=== PATIENT | male | born 1985 | race Caucasian/White ===

== ENCOUNTER 2018-04-15 05:41 | Day surgery (SDC) | payer OTHER ==
[~2018-04-15 05:41] MED LIST: ACETAMINOPHEN 500 MG TAB PO ONE; GABAPENTIN 300 MG CAP PO ONE; ceFAZolin 2 GM/DEXTROSE 100 ML IV ONE
[2018-04-15] MEDS ORDERED: LR 1,000 ML IV ONE (05:52)
[2018-04-15] MEDS ORDERED: CHLORHEXIDINE GLUC HIBICLENS 118 ML BTL TP ONE (06:49)
[2018-04-15] MEDS ORDERED: THROMBIN (BOVINE) 5,000 UNIT VIAL TP ONE (06:49)
[2018-04-15] MEDS ORDERED: BUPIVACAINE 0.25% 30 ML SDV ONE (06:49)
[2018-04-15] MEDS ORDERED: EPINEPHrine 1 MG/ML INJ ONE (06:50)
[2018-04-15] MEDS ORDERED: BACITRACIN 50,000 UNITS/10 ML SYR IRR ONE (06:50)
[2018-04-15] MEDS ORDERED: MIDAZOLAM 2 MG/2 ML VIAL IVP ONE (07:04)
--- NOTE | 2018-04-15 07:05 | PDHPUP ---
History & Physical Update H&P update statement: This history and physical update is based on an assessment of the patient which was completed after admission or registration (within 24 hours), but prior to the surgery/procedure. H&P update: H&P reviewed & patient examined, no change in patient's condition since H&P completed
--- NOTE | 2018-04-15 07:06 | PDANEPAE ---
ANE History of Present Illness lumbar microdisc ANE Past Medical History - Cardiovascular History Hx Hypertension: No Hx Arrhythmias: No Hx Chest Pain: No Hx Coronary Artery / Peripheral Vascular Disease: No Hx CHF / Valvular Disease: No Hx Palpitations: No - Pulmonary History Hx COPD: No Hx Asthma/Reactive Airway Disease: No Hx Recent Upper Respiratory Infection: No Hx Oxygen in Use at Home: No Hx Sleep Apnea: No ANE Review of Systems Review of systems is: negative Review of Systems: - Exercise capacity Exercise capacity: >=4 METS ANE Patient History - Allergies Allergies/Adverse Reactions: No Known Allergies Allergy (Unverified 04/12/18 15:42) - Home Medications Home medications: home medication list seen and reviewed Home Medications: Gabapentin 600 mg PO TID 04/15/18 [Last Taken 04/14/18] Oxycodone-Acetaminophen 10-325 04/15/18 [Last Taken 04/14/18] - NPO status NPO Since - Liquids (Date): 04/14/18 NPO Since - Liquids (Time): 21:00 NPO Since - Solids (Date): 04/14/18 NPO Since - Solids (Time): 18:00 - Anes Hx Anes Hx: no prior problems ANE Labs/Vital Signs - Vital Signs Blood Pressure: 103/62 Heart Rate: 53 Respiratory Rate: 16 O2 Sat (%): 97 Height: 185.42 cm Weight: 74.843 kg ANE Physical Exam - Airway Neck exam: FROM Mallampati Score: Class 2 Mouth exam: normal dental/mouth exam - Pulmonary Pulmonary: no respiratory distress - Cardiovascular Cardiovascular: regular rate and rhythym - ASA Status ASA Status: II ANE Anesthesia Plan Anesthesia Plan: general endotracheal anesthesia
[2018-04-15] MEDS ORDERED: PROPOFOL/EMULSION 500 MG/50 ML BOTTLE IV ONE (07:10)
[2018-04-15] MEDS ORDERED: fentaNYL 250 MCG/5 ML INJ ONE (07:10)
[2018-04-15] MEDS ORDERED: DEXAMETHASONE 4 MG/ML VIAL ONE (07:15)
[2018-04-15] MEDS ORDERED: KETOROLAC 30 MG/1 ML SDV ONE ×3 (07:15→13:50)
[2018-04-15] MEDS ORDERED: ROCURONIUM 50 MG/5 ML VIAL ONE ×2 (07:15→08:42)
[2018-04-15] MEDS ORDERED: ONDANSETRON 4 MG/2 ML VIAL ONE (07:15)
[2018-04-15] MEDS ORDERED: LIDOCAINE 2% 5 ML SDV ONE (07:16)
[2018-04-15] MEDS ORDERED: DEPO METHYLPREDNISOLONE 40 MG/ML SDV ONE (08:15)
--- NOTE | 2018-04-15 08:43 | POSTANESTH ---
Post Anesthetic Evaluation Cardiovascular Status: Normal, Stable Respiratory Status: Normal, Stable Level of Consciousness/Mental Status: Can Participate in Eval, Mildly Sleepy, Arousable Pain Control: Adequate, Prn Tx Ordered Nausea/Vomiting Control: Adequate, Prn Tx Ordered Complications Possibly Related to Anesthesia: None Noted
[2018-04-15] MEDS ORDERED: ALBUTEROL 3 ML DEYVIAL IH PRN (09:09)
[2018-04-15] MEDS ORDERED: ACETAMINOPHEN 500 MG TAB PO PRN (09:09)
[2018-04-15] MEDS ORDERED: oxyCODONE IR 5 MG TAB PO PRN (09:09)
[2018-04-15] MEDS ORDERED: HYDROmorphONE/DILAUDID 1 MG/ML INJ IVP PRN (09:09)
[2018-04-15] MEDS ORDERED: HYDROCODONE/APAP 5/325 TAB PO PRN (09:09)
[2018-04-15] MEDS ORDERED: LR 500 ML IV PRN (09:09)
[2018-04-15] MEDS ORDERED: ONDANSETRON 4 MG/2 ML VIAL IVP PRN (09:09)
[2018-04-15] MEDS ORDERED: NALOXONE HCL 0.4 MG/ML INJ IVP PRN (09:09)
[2018-04-15] MEDS ORDERED: PROMETHAZINE HCL 25 MG/ML INJ IVP PRN (09:09)
[2018-04-15] MEDS ORDERED: SUGAMMADEX SODIUM 200 MG/2 ML VIAL IVP ONE (09:10)
--- NOTE | 2018-04-15 10:02 | POSTOPPROG ---
Post Op Note Date of Operation: 04/15/18 Surgeon: Julio C Forrester Aeronautical Engineering Technologist: Alexandre Mars NP Anesthesia: GET(General Endotracheal) Pre-op Diagnosis: L5-S1 HNP Procedure: Right L5-S1 JAMI Inf/Abcess present in the surg proc area at time of surgery?: No Depth: Deep Incisional (Fascial) EBL: Minimal Total fluids administered: see anesthesia Complications: none Date of Surgery: 04/15/18 Post Op Day: 0 Assessment/Plan: Assessment: 33 yr old M s/p Right L5-S1 JAMI Plan: -Discharge home when criteria met -Call neurosurgery with any questions/concerns Subjective: Waking up in pacu Objective: Waking up in pacu Following commands 5/5 BLE aside from right TA and EHL 5- Sensation intact to light touch BLE Dressing CDI Appropriate Neuro Check Frequency Ordered: Yes
[2018-04-15] MEDS ORDERED: fentaNYL 100 MCG/2 ML INJ ONE (10:07)
[2018-04-15] MEDS: fentaNYL 100 MCG/2 ML INJ IVP PRN ×2 (10:10→10:21)
[2018-04-15] MEDS ORDERED: DIAZEPAM 5 MG/ML 1 ML SYR ONE (10:14)
[2018-04-15] MEDS: DIAZEPAM 5 MG/ML 1 ML SYR IVP PRN ×2 (10:16→11:08)
--- NOTE | 2018-04-15 10:25 | GOP ---
[f rep st] OPERATIVE REPORT DATE OF OPERATION: 04/15/2018 SURGEON: Kelby Forrester MD BOX NAILER: Soo Mars NP. PREOPERATIVE DIAGNOSIS: Herniated nucleus pulposus, right L5-S1, right lumbosacral radiculopathy. POSTOPERATIVE DIAGNOSIS: Herniated nucleus pulposus, right L5-S1, right lumbosacral radiculopathy. PROCEDURE PERFORMED: Right L5-S1 hemilaminotomy, medial facetectomy with a right L5-S1 microdiskecto my (03/30) microscope. FINDINGS: ESTIMATED BLOOD LOSS: 10 cc. INDICATIONS: Mr. Vargas is a young gentleman who for the last 2 months, has had terrible right lumbo sacral radiculopathy that really has gotten dramatically worse recently. When he saw me last week, vidhi muro did have weakness in the right foot, as well as terrible radiating pain down the right leg and coul d barely walk. He was in clear distress from this and we made efforts to put him on the surgery sche dule even last Sunday. His symptoms were more severe even than MRI suggested and because it had been 2 months since the prior MRI, we got a repeat MRI urgently last week and it was the same as the 1 in January. Did have a right lateral disk prolapse at L5-S1. It was still in the canal and directly under neath the medial portion of the facet joint, but he had components of both an L5 and even an S1 radic ulopathy. It is unclear to me why he had such profound weakness in the right foot, although part of his exam may have been limited by pain. We made an effort to get his surgery on last Sunday, but he had some difficulty with insurance and once this was approved, we put him on at my next available OR time which was Sunday morning. He did have some emergency room visits and was told that he could get surgery over the weekend on an emergent basis with my partners, but he was able to last through the weekend and wait for surgery with me this morning. The risk of recurrent disk herniation, nerve inju ry, spinal fluid leak was discussed. It was our intention to do this as an outpatient and I expected him to be able to go home the same day. He did want to proceed despite the risks. DESCRIPTION OF PROCEDURE: Patient was taken to the operating room, placed in the supine position. G eneral anesthesia was begun. He was flipped prone on the Evan frame. Care was taken to pad all po ints of contact. His back was sterilely prepped and draped in the usual fashion. A localizing x-ray was taken. We made a 15 mm incision above the L5-S1 interspace. The subcutaneous tissue was dissec alvin using Bovie cautery down to the fascia and subperiosteal dissection was made down the right L5-S1 lamina. Self-retaining retractors placed. A localizing x-ray was taken. We drilled a minimal righ t L5-S1 hemilaminotomy and opened the ligamentum flavum on the microscope and decompressed the right lateral recess of the spinal canal. The S1 nerve root was identified. We also exposed the L5 nerve root. It was wedged in more laterally up underneath the L5 pedicle lateral to what appeared to be so rt of a chronic L5-S1 disk prolapse. There was bony lipping coming off the L5 vertebral body going u p over the large prolapsed disk at L5-S1. We incised the soft disk, removed all the soft disk materi al from the prolapsed disk and this relaxed the S1 root. The L5 root itself was not dramatically com pressed by the pathology, but we were left with a large spike of bone coming off the L5 vertebral bod y. We took a curette and simply broke this bone chip off that was still coming up toward the S1 root . We also worked our way out laterally where this bone chip was at least in contact with the 5 root and this was removed there as well. The S1 and the L5 nerve root had plenty of room. We irrigated w ith antibiotic saline solution. We did not radically disturb the internal parts of the L5-S1 disk. We used a Peapod to grab some subannular fragments centrally and laterally at L5-S1 and we took a bal l-tip probe and probed centrally and laterally and there was no additional compression of either nerv e. We placed a little Depo-Medrol down over the right S1 nerve and then closed the incision in multi ple layers using Vicryl sutures. Large amounts of antibiotic irrigation had been used throughout the surgery. The patient was reversed from anesthesia, extubated, and transferred to recovery room in s table condition. There were no complications. SURGEON: Kelby Forrester M.D. COMPLICATIONS: None. /[id number]/MODL
[2018-04-15] MEDS ORDERED: HYDROmorphONE/DILAUDID 2 MG/ML INJ ONE (10:28)
[2018-04-15] MEDS ORDERED: METHOCARBAMOL 750 MG TAB PO ONE (10:30)
[2018-04-15] MEDS: HYDROmorphONE/DILAUDID 2 MG/ML INJ IVP PRN ×4 (10:35→11:57)
[2018-04-15] MEDS ORDERED: METHOCARBAMOL 750 MG TAB ONE (10:43)
[2018-04-15] MEDS ORDERED: oxyCODONE IR 5 MG TAB ONE (11:12)
[2018-04-15] MEDS ORDERED: KETOROLAC 30 MG/1 ML SDV IVP ONE (12:15)
[2018-04-15 14:07] VITALS: BP 104/68
== END 2018-04-15 13:49 | disposition home or self-care (01) ==
LOC: FSGY 05:41
PROVIDERS: ATTEND Neurological Surgery
PROC: 00NY0ZZ Release Lumbar Spinal Cord, Open Approach (ICD-10-PCS; principal; 2018-04-15 07:30)
PROC: 0SB20ZZ Excision of Lumbar Vertebral Disc, Open Approach (ICD-10-PCS; principal; 2018-04-15 07:30)
DX: M51.27 Other intervertebral disc displacement, lumbosacral region (principal); M54.17 Radiculopathy, lumbosacral region
CPT/HCPCS: J0171; J0690; J1030; J1100; J1170; J1885; J2250; J2405; J2704; J3010; J3360